=== PATIENT | male | born 1945 | race Caucasian/White ===

== ENCOUNTER 2022-10-17 15:36 | Emergency (ER) | payer OTHER ==
[~2022-10-17] VITALS: Ht 175.3 cm; Wt 109.1 kg
[2022-10-17] VITALS (7 sets, daily range): BP systolic 112–143; BP diastolic 58–75
[2022-10-17 19:03] LABS: BASO% 0.2 % (0-3); EOS% 3.2 % (0-8); HEMATOCRIT 36.1 % (39.0-50.0); HEMOGLOBIN 12.6 g/dl (14.0-18.0); IMMATURE GRANULOCYTES 0.4 % (0.0-5.0); LYMPH% 31.5 % (15-41); MEAN CELL VOLUME 95.3 fL CALC (80.0-100.0); MEAN CORPUSCULAR HGB 33.2 pG CALC (26.0-32.0); MEAN CORPUSCULAR HGB CONC 34.9 g/dL CAL (32.0-36.0); MONO% 10.4 % (2-13); NEUT# 2.7 thou/uL (1.82-7.42); NEUT% 54.3 % (42-76); RED BLOOD COUNT 3.79 mill/uL (4.70-6.10); RED CELL DISTRI WIDTH 12.4 % (11.5-15.5)
[2022-10-17 19:05] LABS: URINE BILIRUBIN - DIPSTICK NEGATIVE (NEGATIVE); URINE BLOOD DIPSTICK NEGATIVE (NEGATIVE); URINE COLOR YELLOW; URINE GLUCOSE - DIPSTICK NEGATIVE (NEGATIVE); URINE KETONE NEGATIVE (NEGATIVE); URINE LEUK ESTERASE TRACE (NEGATIVE); URINE PROTEIN - DIPSTICK NEGATIVE (NEG-TRACE); URINE SPECIFIC GRAVITY >=1.030; URINE UROBILINOGEN - DIPSTICK 0.2 E.U./dL (0.2)
[2022-10-17 19:11] LABS: URINE NITRITE - DIPSTICK NEGATIVE (Negative)
[2022-10-17 19:16] LABS: ALBUMIN 4.5 g/dL (3.2-5.0); ALKALINE PHOSPHATASE 78 u/l (38-126); AMYLASE 82 u/l (30-110); ANION GAP 16 (6-22 (CALC)); BILIRUBIN, TOTAL 0.6 mg/dL (0.0-1.4); BUN 29 mg/dL (8-23); BUN/CREATININE RATIO 17 (12-20 (CALC)); CARBON DIOXIDE 21 mmol/l (22-30); CHLORIDE 109 mmol/l (95-108); CREATININE 1.7 mg/dL (0.7-1.3); GFR FOR AFR.AMER. 48 ML/MIN (>=60 (CALC)); GFR OTHER RACES 39 ML/MIN (>=60 (CALC)); POTASSIUM 3.9 mmol/l (3.5-5.1); SGOT/AST 49 u/l (19-48); SODIUM 142 mmol/l (137-146); TOTAL PROTEIN 7.7 g/dL (6.3-8.2)
[2022-10-17] MEDS ORDERED: PEPCID20 MG PO (21:24)
[2022-10-17] MEDS ORDERED: PROTONIX40 M2 PO (21:24)
== END 2022-10-17 22:04 | disposition home or self-care (01) | DRG 392 ==
LOC: ED 15:36
PROVIDERS: Nurse Practitioner
DX: K29.70 Gastritis, unspecified, without bleeding (principal)
CPT/HCPCS: Q9967; S0164

== ENCOUNTER 2022-11-23 06:48 | Day surgery (SDC) | payer MEDICARE ==
[~2022-11-23] VITALS: Ht 175.3 cm; Wt 107.0 kg
[~2022-11-23 06:48] MED LIST: AMLODIPINE BESY10 MG PO; ASMANEX; ASPIRIN 81 LOW81 MG; AZELASTINE HYD0.15 %; B121000 MC1; BUSPIRONE15 MG PO; CVS STOOL SOFT100 MG; DRIZALMA SPRINK30 MG; EZALLOR SPRINKL20 MG; FERROUS SULF325 M3 PO; GLIPIZIDE ER5 M1 PO; MULTIVITAMIN1 TA1; OZEMPIC 8 MG/3M1 INJ IJ; PEPCID20 MG PO; PROSCAR5 MG PO; PROTONIX40 M2 PO; TAMSULOSIN HCL0.4 MG PO; ZESTRIL10 M1 PO
[2022-11-23 08:36] VITALS: BP 131/76
== END 2022-11-23 08:48 | disposition home or self-care (01) ==
LOC: ENDO 06:48 → ORM 08:00 → ENDO 08:48 → ORM 09:00
PROVIDERS: ATTEND Surgery
PROC: 0DJ08ZZ Inspection of Upper Intestinal Tract, Via Natural or Artificial Opening Endoscopic (ICD-10-PCS; principal; 2022-11-23)
DX: K21.9 Gastro-esophageal reflux disease without esophagitis (principal); I10 Essential (primary) hypertension; E11.9 Type 2 diabetes mellitus without complications; Z79.84 Long term (current) use of oral hypoglycemic drugs; Z79.899 Other long term (current) drug therapy